=== PATIENT | female | born 1985 | race Caucasian/White ===

== ENCOUNTER → 2019-12-30 | Outpatient (CLI) | payer OTHER ==
--- NOTE | 2019-12-30 08:47 | US ---
EXAMINATION TYPE: US abdomen limited DATE OF EXAM: 12/30/2019 COMPARISON: NONE CLINICAL HISTORY: R10.11 RUQ pain. Pain EXAM MEASUREMENTS: Liver Length: 13.5 cm Gallbladder Wall: .2 cm CBD: .2 cm Right Kidney: 10.3 x 3.6 x 4.0 cm Pancreas: wnl Liver: wnl Gallbladder: Stone seen Evidence for sonographic Erwin's sign: No CBD: wnl Right Kidney: wnl IMPRESSION: Uncomplicated cholelithiasis.
== END | disposition home or self-care (01) ==
LOC: RADUSWWP 08:12
PROVIDERS: ATTEND Family Medicine
DX: K80.20 Calculus of gallbladder without cholecystitis without obstruction (principal)
CPT/HCPCS: 76705

== ENCOUNTER → 2020-10-06 | Outpatient (CLI) | payer OTHER ==
--- NOTE | 2020-10-06 09:24 | US ---
EXAMINATION TYPE: US pelvis complete transvag DATE OF EXAM: 10/06/2020 COMPARISON: NONE CLINICAL HISTORY: N94.6 Dysmenorrhea. TECHNIQUE: Transvaginal (TV) and Transabdominal (TA) . Transabdominal sonographic images of the pel vis were acquired. Transvaginal sonographic images were medically necessary to better assess the fol lowing anatomy: endo and left ovary. Date of LMP: 09/30/2020 EXAM MEASUREMENTS: Uterus: 10.4 x 5.3 x 7.0 cm Endometrial Stripe: 1.2 cm Right Ovary: 2.8 x 2.8 x 2.3 cm Left Ovary: 2.9 x 2.1 x 1.5 cm 1. Uterus: Anteverted There is a vascular 4.3 x 4.4 x 4.2 cm mass that is difficult to tell if it is in myometrium or within endo. 2. Endometrium: measures 1.2 cm 3. Right Ovary: wnl 4. Left Ovary: wnl 5. Bilateral Adnexa: wnl 6. Posterior cul-de-sac: no free fluid IMPRESSION: Heterogeneous mass within the uterus is indeterminant on this examination. It may represent a submuco ravinder leiomyoma, however, other etiologies are also possible. MRI pelvis with and without contrast may be helpful for further evaluation.
== END | disposition home or self-care (01) ==
LOC: RADUSWWP 08:43
PROVIDERS: ATTEND Obstetrics & Gynecology
DX: N85.8 Other specified noninflammatory disorders of uterus (principal)
CPT/HCPCS: 76830; 76856

== ENCOUNTER → 2020-12-27 | Outpatient (CLI) | payer OTHER ==
--- NOTE | 2020-12-27 12:28 | US ---
EXAMINATION TYPE: US pelvic complete DATE OF EXAM: 12/27/2020 COMPARISON: US dated 10/06/2020 CLINICAL HISTORY: D25.9,Leiomyoma of uterus, unspecified N92.0. F/U prior TECHNIQUE: Transabdominal (TA). Transabdominal sonographic images of the pelvis were acquired. Date of LMP: 12/22/2020 EXAM MEASUREMENTS: Uterus: 12.1 x 6.9 x 7.8 cm Endometrial Stripe: 1.0 cm Right Ovary: 2.5 x 1.8 x 1.9 cm Left Ovary: 2.4 x 1.4 x 1.8 cm 1. Uterus: Anteverted Heterogeneous with probable fibroid posterior fundus= 5.6 x 6.1 x 6.6 cm- clifton s increased in size since previous, displacing endometrium anteriorly 2. Endometrium: 1.0 3. Right Ovary: wnl 4. Left Ovary: wnl 5. Bilateral Adnexa: wnl 6. Posterior cul-de-sac: wnl IMPRESSION: Fibroid uterus
== END | disposition home or self-care (01) ==
LOC: RADUSWWP 09:39
PROVIDERS: ATTEND Obstetrics & Gynecology
DX: D25.9 Leiomyoma of uterus, unspecified (principal)
CPT/HCPCS: 76856

== ENCOUNTER → 2021-02-18 | Outpatient (CLI) | payer OTHER ==
[2021-02-18 11:37] LABS: Basophils # (A) 0.1 k/uL (0-0.2); Basophils % (A) 1 %; Eosinophils # (A) 0.2 k/uL (0-0.7); Eosinophils % (A) 5 %; HCT 33.6 % (34.0-46.0); HGB 11.1 gm/dL (11.4-16.0); Hypochromasia Slight; Lymphocytes # (A) 1.3 k/uL (1.0-4.8); Lymphocytes % (A) 25 %; MCH 27.4 pg (25.0-35.0); MCV 83.1 fL (80.0-100.0); Mean Platelet Volume 7.3; Monocytes # (A) 0.3 k/uL (0-1.0); Monocytes % (A) 5 %; Neutrophils # (A) 3.2 k/uL (1.3-7.7); Neutrophils % (A) 62 %; Platelet Count 442 k/uL (150-450); Poikilocytosis Slight; RBC 4.04 m/uL (3.80-5.40); RDW 13.2 % (11.5-15.5); WBC 5.1 k/uL (3.8-10.6)
[2021-02-18 11:54] LABS: African American GFR (CKD) >90 (>60 ml/min/1.73 sqM); Anion Gap 7 mmol/L; Blood Urea Nitrogen 18 mg/dL (7-17); Calcium 9.6 mg/dL (8.4-10.2); Carbon Dioxide 25 mmol/L (22-30); Chloride 106 mmol/L (98-107); Glucose 90 mg/dL (74-99); Non-African American GFR(CKD) >90 (>60 ml/min/1.73 sqM); Potassium 5.1 mmol/L (3.5-5.1); Sodium 138 mmol/L (137-145)
== END | disposition home or self-care (01) ==
LOC: LABPAT 09:47
PROVIDERS: ATTEND Obstetrics & Gynecology
DX: Z01.812 Encounter for preprocedural laboratory examination (principal)
CPT/HCPCS: 36415; 80048; 85025

== ENCOUNTER 2021-02-28 05:54 | Inpatient (IN) | payer OTHER ==
[2021-02-24 09:22] VITALS: BMI 32.1
[2021-02-28] MEDS ORDERED: LACTATED RINGERS 1,000 ML IV ONE ×2 (06:51→09:23)
[2021-02-28] MEDS ORDERED: ONDANSETRON 4 MG/2 ML VIAL ONE (07:03)
[2021-02-28] MEDS ORDERED: MIDAZOLAM 2 MG/2 ML VIAL IVP ONE (07:07)
[2021-02-28] MEDS ORDERED: DEXAMETHASONE SOD PHOSPHATE 4 MG/ML 1 ML VIAL IVP ONE (07:11)
[2021-02-28] MEDS ORDERED: ONDANSETRON 4 MG/2 ML VIAL IVP ONE ×2 (07:11→08:24)
--- NOTE | 2021-02-28 07:43 | P.HPOB ---
History of Present Illness H&P Date: 02/27/21 Chief Complaint: Menorrhagia with regular cycle, enlarging uterine fibroids This is a 35 y.o. female, 2, para 2, who presents for total abdominal hysterectomy with bilateral salpingectomy, possible oophorectomy. Her ultrasound initially showed a 4.4 cm fibroid in September, and in December it was up to 6.6 cm. In addition, she has heavy, painful, irregular menses along with urinary frequency and pelvic pressure. In light of her rapidly enlarging fibroid, there is a concern for leiomyosarcoma and therefore pelvic washings will be performed. Ultrasound showed uterus measuring 12.1 x 6.9 x 7.8 cm with lining thickness of 1 cm and both ovaries appeared normal. There is a probable fibroid in posterior fundus measuring 5.6 x 6.1 x 6.6 cm. She only wants ovaries removed if there is a high suspicion for cancer.] OB Hx: . History of 2 vaginal deliveries. Vehicle Check In Clerk Hx: No history of STDs. Social Hx: . Works at a [employer] Review of Systems Constitutional: Reports fatigue, Denies chills, Denies fever Eyes: denies blurred vision, denies pain Ears, nose, mouth and throat: Denies headache, Denies sore throat Cardiovascular: Denies chest pain, Denies shortness of breath Respiratory: Denies cough Gastrointestinal: Reports abdominal pain (Lower pressure) Genitourinary: Reports dysmenorrhea, Reports menorrhagia, Reports pelvic pain, Reports urinary frequency Musculoskeletal: Reports low back pain, Denies myalgias Integumentary: Denies pruritus, Denies rash Neurological: Reports headaches (on menses) Psychiatric: Reports anxiety Hematologic/Lymphatic: Reports easy bruising Past Medical History Past Medical History: Hyperlipidemia Additional Past Medical History / Comment(s): states low iron, heavy menstrual periods. History of Any Multi-Drug Resistant Organisms: None Reported Past Surgical History: No Surgical Hx Reported Additional Past Anesthesia/Blood Transfusion Reaction / Comment(s): no anesthesia hx Past Psychological History: No Psychological Hx Reported Smoking Status: Former smoker Past Alcohol Use History: None Reported Additional Past Alcohol Use History / Comment(s): quit smoking prior to 19 years old., smoked 3 years Past Drug Use History: None Reported - Past Family History Father Family Medical History: Cancer Additional Family Medical History / Comment(s): thyroid cancer Medications and Allergies Home Medications Medication Instructions Recorded Confirmed Type Iron (Unknown Dose) 1 tab PO DIRECTED 02/24/21 02/28/21 History Niacin 1,000 mg PO DIRECTED 02/24/21 02/28/21 History No Known Home Medications 02/24/21 02/28/21 History [place]-3 Fatty Acids/Fish Oil [Fish 1 each PO DAILY 02/24/21 02/28/21 History Oil 1,000 mg Softgel] Allergies Allergy/AdvReac Type Severity Reaction Status Date / Time No Known Allergies Allergy Verified 02/28/21 06:28 Exam Osteopathic Statement: *. No significant issues noted on an osteopathic structural exam other than those noted in the History and Physical/Consult. HEENT: within normal limits Heart: regular rate and rhythm Lungs: clear to auscultation bilaterally Abdomen: soft, non-tender Pelvic: uterus enlarged to about 12 week size, non-tender, no adnexal masses or tenderness Extremities: neg. Dianna's. Results Result Diagrams: 02/28/21 06:50 Assessment and Plan (1) Fibroid tumor Current Visit: No Status: Acute Code(s): D21.9 - BENIGN NEOPLASM OF CONNECTIVE AND OTHER SOFT TISSUE, UNSP SNOMED Code(s): 098435638633364 (2) Menorrhagia with irregular cycle Current Visit: No Status: Acute Code(s): N92.1 - EXCESSIVE AND FREQUENT MENSTRUATION WITH IRREGULAR CYCLE SNOMED Code(s): 404160777 Plan: Proceed with total abdominal hysterectomy with bilateral salpingectomy, possible oophorectomy. I have discussed the risks, benefits, and alternative therapies for the above- mentioned procedure and for both sedation/anesthesia as well as necessary blood products administration, if indicated, as they pertain to this patient. The pat ient has indicated her understanding and acceptance of the risks and procedures discussed.
[2021-02-28] MEDS ORDERED: SUCCINYLCHOLINE CHLORIDE 100 MG/5 ML SYR IV ONE (08:00)
[2021-02-28] MEDS ORDERED: PROPOFOL 10 MG/ML 20 ML VIAL IV ONE (08:00)
[2021-02-28] MEDS ORDERED: GLYCOPYRROLATE 0.2 MG/ML 2 ML VIAL ONE (08:00)
[2021-02-28] MEDS ORDERED: LIDOCAINE 1% INJ 10MG/ML (20 ML MDV) ONE (08:00)
[2021-02-28] MEDS ORDERED: NEOSTIGMINE 1 MG/ML 10 ML VIAL ONE (08:00)
[2021-02-28] MEDS ORDERED: .fentaNYL (PF) 50 MCG/ML 2 ML AMP ONE (08:00)
[2021-02-28] MEDS ORDERED: diphenhydrAMINE 50 MG/ML 1 ML VIAL ONE (08:00)
[2021-02-28] MEDS ORDERED: ROCURONIUM 10 MG/ML (5 ML VIAL) IV ONE (08:00)
[2021-02-28] MEDS ORDERED: SIMETHICONE 80 MG CHEWABLE PO PRN (08:24)
[2021-02-28] MEDS ORDERED: DEXAMETHASONE SOD PHOSPHATE 4 MG/ML 1 ML VIAL IV ONE (08:24)
[2021-02-28] MEDS ORDERED: KETOROLAC 15 MG/ML 1 ML VIAL IVP PRN (08:24)
[2021-02-28] MEDS ORDERED: ZOLPIDEM 5 MG TAB PO PRN (08:24)
[2021-02-28] MEDS ORDERED: MIDAZOLAM 2 MG/2 ML VIAL IV PRN (08:24)
[2021-02-28] MEDS ORDERED: HYDROmorphone 0.5 MG/0.5 ML SYRINGE IVP PRN (08:24)
[2021-02-28] MEDS ORDERED: ONDANSETRON 4 MG/2 ML VIAL IVP PRN (08:24)
[2021-02-28] MEDS ORDERED: METOCLOPRAMIDE 5 MG/ML 2 ML VIAL IVP PRN (08:24)
[2021-02-28] MEDS ORDERED: LIDOCAINE 1% (10MG/ML) FOR IV START INTRADERMA PRN (08:24)
--- NOTE | 2021-02-28 09:07 | P.OP ---
Date of Procedure: 02/28/21 Preoperative Diagnosis: Menorrhagia with irregular cycle Enlarging uterine fibroids Postoperative Diagnosis: Same Procedure(s) Performed: Total abdominal hysterectomy with bilateral salpingectomy Anesthesia: GETA, spinal (Duramorph) Surgeon: Kya Lagunas Concrete Polisher #1: Jacque Mckinney Estimated Blood Loss (ml): 50 Pathology: other (Uterus with cervix and bilateral fallopian tubes, pelvic washings) Condition: stable Disposition: floor Indications for Procedure: This is a 35 y.o. female, 2, para 2, who presents for total abdominal hysterectomy with bilateral salpingectomy, possible oophorectomy. Her ultrasound initially showed a 4.4 cm fibroid in September, and in December it was up to 6.6 cm. In addition, she has heavy, painful, irregular menses along with urinary frequency and pelvic pressure. In light of her rapidly enlarging fibroid, there is a concern for leiomyosarcoma and therefore pelvic washings will be performed. Ultrasound showed uterus measuring 12.1 x 6.9 x 7.8 cm with lining thickness of 1 cm and both ovaries appeared normal. There is a probable fibroid in posterior fundus measuring 5.6 x 6.1 x 6.6 cm. She only wants ovaries removed if there is a high suspicion for cancer.] Operative Findings: Uterus is enlarged with fibroid change. Both ovaries and tubes appeared normal. Description of Procedure: The patient is taken to the operating room where she is placed in the dorsal supine position. She is prepped and draped in the normal sterile fashion including Carmichael catheter insertion and vaginal prep. A Pfannenstiel skin incision is made with a scalpel. A second knife was used to carry the incision down to the underlying layer of fascia. The fascia was nicked in the midline with a scalpel and then extended laterally bilaterally with Jin scissors. The superior aspect of the fascial incision was grasped with Rita clamps, elevated off the underlying rectus muscle in the midline and then cut with Jin scissors. The inferior aspect of the fascial incision was grasped with Rita clamps, elevated off the underlying rectus muscle in the midline and then cut with Jin scissors. Next the peritoneum was identified and entered sharply with Jin scis sors. It is extended superiorly and in fairly with Metzenbaum scissors with good visualization of underlying structures. Next the [place] retractor is placed in the bladder blade was inserted. A small amount of saline is placed in the pelvis and a Lukey tube is used to perform pelvic washings. The bowels were packed with a 3 yard laparotomy sponge. Next the uterus is brought up incision and the corneal regions are grasped with Olimpia clamps on both sides. Next the fallopian tube on the left side is brought up to the incision and the mesosalpinx is clamped with a Villa clamp. This is cut with Jin scissors and then sutured with 0 Vicryl suture in Villa transfixion stitch. The remaining mesosalpinx is also clamped with a Villa clamp, cut with Jin scissors, and sutured with 0 Vicryl suture in Villa transfixion stitches. Next the uterine ovarian ligament is clamped with a Villa clamp, cut with Jin scissors, and then sutured with 0 Vicryl suture in Villa transfixion stitch. The same procedure is carried out on the right side. The uterine arteries are then clamped with Villa clamp on either side. The vesicouterine peritoneum was sharply dissected away from the bladder with Metzenbaum scissors and pushed inferiorly. The uterine arteries are then cut with Jin scissors, and sutured with 0 Vicryl suture in Villa transfixion stitches. Next the cardinal ligaments were clamped on either side with Villa clamp, cut with Jin scissors, and sutured with 0 Vicryl suture in Villa transfixion stitches. The uterosacral ligaments are clamped on either side with Villa clamps, cut with Jin scissors, and sutured with 0 Vicryl suture in Villa transfixion stitches on either side. The edges of the vaginal cuff were clamped on either side with a Villa clamp, cut with Jin scissors, and sutured with 0 Vicryl suture in Villa transfixion stitches and held on either side. The vaginal mucosa was then cut just below the level of the cervix and the specimen is removed from the field. The edges of the vaginal cuff were held with Rita clamps. Next the previously held corners of each side of the vaginal cuff were then whipstitched along the connective tissue on either side and brought through the corner of the cuff and tied. Next the vaginal cuff was sutured with 0 Vicryl suture in a running locked fashion. Hemostasis was noted. Copious irrigation is carried out with warm saline. Excellent hemostasis is noted. All sponges are removed from the abdomen. The peritoneum is then closed with 0 Vicryl suture in a running fashion. The muscle was then reapproximated with 0 Vicryl suture in interrupted fashion. The fascia layer is then closed with 0 PDS suture in a running fashion with the knots buried on either side and in the midline. Next the subcutaneous tissues closed with 2-0 Vicryl suture in a running fashion. The skin is closed with devyn. All sponge and needle counts are correct and the patient is taken to recovery room in stable condition.
[2021-02-28] MEDS: diphenhydrAMINE 50 MG/ML 1 ML VIAL IVP PRN ×3 (09:41→22:13)
[2021-02-28] MEDS: KETOROLAC 30 MG/ML 1 ML VIAL IVP PRN ×2 (11:34→18:08)
--- NOTE | 2021-02-28 15:04 | P.ANPRN ---
Procedure Note - Anesthesia - Epidural/Spinal Spinal Time Out Performed: Yes Date of Procedure: 02/28/21 Procedure Start Time: 07:06 Procedure Stop Time: 07:11 Location of Patient: PreOp Indication: Acute Post-Operative Pain, Requested by Surgeon Sedation Type: Sedate with meaningful contact maintained Preparation: Sterile Prep Position: Sitting Needle Guage: 25 Blood Aspirated: No Pain Paresthesia on Injection Noted: No Events: Uneventful and Well Tolerated (Duramorph 300 mics plus fentanyl 25 mics)
[2021-02-28] MEDS: LACTATED RINGERS 1,000 ML IV SCH (18:09)
[2021-02-28] MEDS: SENNOSIDES-DOCUSATE SODIUM 1 EACH TAB PO SCH (20:11)
[2021-03-01] MEDS: KETOROLAC 30 MG/ML 1 ML VIAL IVP PRN ×2 (02:39→08:43)
[2021-03-01 04:40] LABS: Basophils % (A) 0 %; Eosinophils % (A) 0 %; HCT 28.9 % (34.0-46.0); Hypochromasia Marked; Lymphocytes # (A) 1.2 k/uL (1.0-4.8); Lymphocytes % (A) 15 %; MCH 26.6 pg (25.0-35.0); MCHC 31.6 g/dL (31.0-37.0); MCV 84.1 fL (80.0-100.0); Mean Platelet Volume 8.5; Monocytes # (A) 0.5 k/uL (0-1.0); Monocytes % (A) 7 %; Neutrophils # (A) 6.1 k/uL (1.3-7.7); Neutrophils % (A) 77 %; Platelet Count 325 k/uL (150-450); Poikilocytosis Slight; RBC 3.44 m/uL (3.80-5.40); WBC 7.9 k/uL (3.8-10.6)
[2021-03-01 04:50] LABS: HGB 9.1 gm/dL (11.4-16.0)
--- NOTE | 2021-03-01 06:44 | P.PN ---
Progress Note - Text Progress Note Date: 03/01/21 Patient seen and examined at bedside POD 1 s/p hysterectomy with spinal duramorph. Patients pain is well controlled as duramorph is starting to wean. Patient reports decreased itching. Patient is able to ambulate without difficulty and has used the restroom several times. Patient denies SALCEDO, F/C, parathesias, weakness. Site is clean and without erythema. Will continue to follow until discharge home.
[2021-03-01] MEDS ORDERED: ACETAMINOPHEN TAB 325 MG TAB PO PRN (07:45)
[2021-03-01] MEDS ORDERED: HYDROcodone/APAP 5-325MG 1 EACH TAB PO PRN (08:07)
--- NOTE | 2021-03-01 08:11 | P.PN ---
Subjective Progress Note Date: 03/01/21 Principal diagnosis: Status post KELLIE with bilateral salpingectomy postoperative day #1 Patient is doing okay. She has been ambulating. She is urinating without difficulty. She has minimal vaginal bleeding. She has not passed flatus or bowel movement yet. Her pain is fairly well controlled at this time. Objective - Vital Signs Vital signs: Vital Signs Temp 98.4 F 03/01/21 01:06 Pulse 89 03/01/21 01:06 Resp 16 03/01/21 07:49 BP 133/82 03/01/21 01:06 Pulse Ox 98 03/01/21 01:06 Intake & Output 02/28/21 03/01/21 03/01/21 18:59 06:59 18:59 Intake Total 350 240 Output Total 1050 1650 300 Balance -700 -1410 -300 Weight 69.4 kg Intake: IV 350 Intake, IV Titration 240 Amount Lactated Ringers 1,000 ml 240 @ 20 mls/hr IV .Q24H [facility] Rx#:[id number] Output: Urine 1000 1650 300 Uretheral (Carmichael) 1650 Estimated Blood Loss 50 Other: Voiding Method Indwelling Catheter Toilet - Constitutional General appearance: Present: no acute distress - Gastrointestinal Gastrointestinal Comment(s): Incision is clean dry and intact with devyn in place General gastrointestinal: Present: decreased bowel sounds - Musculoskeletal Musculoskeletal Comment(s): Negative Homans bilaterally - Labs CBC & Chem 7: 03/01/21 04:19 02/28/21 06:50 Labs: Abnormal Lab Results - Last 24 Hours (Table) 03/01/21 Range/Units 04:19 RBC 3.44 L (3.80-5.40) m/uL Hgb 9.1 L D (11.4-16.0) gm/dL Hct 28.9 L (34.0-46.0) % Assessment and Plan Assessment: Status post total abdominal hysterectomy with bilateral salpingectomy postoperative day #1 (1) Fibroid tumor Current Visit: No Status: Acute Code(s): D21.9 - BENIGN NEOPLASM OF CONNECTIVE AND OTHER SOFT TISSUE, UNSP SNOMED Code(s): 451616820099577 (2) Menorrhagia with irregular cycle Current Visit: No Status: Acute Code(s): N92.1 - EXCESSIVE AND FREQUENT MENSTRUATION WITH IRREGULAR CYCLE SNOMED Code(s): 278449030 Plan: Continue with postoperative care. Will advance diet after flatus. Patient is encouraged to ambulate and may shower. Will switch to oral pain medications today.
[2021-03-01] MEDS: SENNOSIDES-DOCUSATE SODIUM 1 EACH TAB PO SCH ×2 (08:42→20:09)
[2021-03-01] MEDS: HYDROcodone/APAP 5-325MG 1 EACH TAB PO PRN ×3 (12:18→23:50)
[2021-03-01] MEDS: IBUPROFEN 600 MG TAB PO PRN ×2 (14:26→21:23)
[2021-03-01] MEDS: LACTATED RINGERS 1,000 ML IV SCH (17:11)
[2021-03-02] MEDS: IBUPROFEN 600 MG TAB PO PRN ×2 (04:00→12:24)
[2021-03-02] MEDS ORDERED: ONDANSETRON 4 MG TAB PO ONE (06:42)
[2021-03-02 08:21] VITALS: BP 129/79; PULSE 88; RESP 13; TEMP 98.1
[2021-03-02] MEDS: SENNOSIDES-DOCUSATE SODIUM 1 EACH TAB PO SCH (08:33)
[2021-03-02] MEDS: HYDROcodone/APAP 5-325MG 1 EACH TAB PO PRN (08:33)
--- NOTE | 2021-03-02 09:00 | P.DS ---
Providers Date of admission: 02/28/21 05:54 Expected date of discharge: 03/02/21 Attending physician: Kya Lagunas Primary care physician: Emmanuel Mcfarland - Discharge Diagnosis(es) (1) Fibroid tumor Current Visit: No Status: Acute (2) Menorrhagia with irregular cycle Current Visit: No Status: Acute Hospital Course: This is a 35-year-old female who underwent a total abdominal hysterectomy with bilateral salpingectomy on 02/28/2021. Her postoperative course has been uncomplicated. She is passing flatus but no bowel movement yet. She did have 1 episode of emesis this morning but overall feels much better than she did yesterday. Her pain is been fairly well controlled with ibuprofen and [place]. Bleeding has stopped. Vital signs are stable. Abdomen is soft with positive bowel sounds 4. Incision is clean dry and intact with devyn in place. Extremities show negative Homans. Impression is status post total abdominal hysterectomy with bilateral salpingectomy postoperative day #2. Plan is to discharge home later today. Routine postoperative instructions are given. St aples will be removed before discharge. She is advised no heavy lifting, no tub baths, no driving until off of narcotic pain medication. She may shower. She is instructed to follow-up in the office in 1 week for a postoperative check and is advised to call the office if she has any further questions or concerns prior to her appointment time. She denies the use of any narcotic for scheduled drug at home. She will be given a perception for ibuprofen and [place] and has signed a consent form. Procedures: Total abdominal hysterectomy with bilateral salpingectomy on 02/28/2021 Patient Condition at Discharge: Stable Plan - Discharge Summary Discharge Rx Participant: Yes New Discharge Prescriptions: New Ibuprofen [Motrin] 600 mg PO Q6HR PRN #60 tab PRN Reason: Mild Discomfort HYDROcodone/APAP 5-325MG [[place] 5-325] 1 each PO Q6HR PRN #30 tab PRN Reason: Moderate Pain Continue Iron (Unknown Dose) 1 tab PO DIRECTED No Action Niacin 1,000 mg PO DIRECTED [place]-3 Fatty Acids/Fish Oil [Fish Oil 1,000 mg Softgel] 1 each PO DAILY Discharge Medication List Iron (Unknown Dose) 1 tab PO DIRECTED 02/24/21 [History] Niacin 1,000 mg PO DIRECTED 02/24/21 [History] [place]-3 Fatty Acids/Fish Oil [Fish Oil 1,000 mg Softgel] 1 each PO DAILY 02/24/21 [History] HYDROcodone/APAP 5-325MG [[place] 5-325] 1 each PO Q6HR PRN #30 tab 03/02/21 [Rx] Ibuprofen [Motrin] 600 mg PO Q6HR PRN #60 tab 03/02/21 [Rx] Follow up Appointment(s)/Referral(s): Kya Lagunas DO [Doctor of Osteopathic Medicine] - 1 Week Activity/Diet/Wound Care/Special Instructions: Activity as tolerated. No heavy lifting. May shower, but no tub baths for at least 1 week. No intercourse. Diet as tolerated. Discharge Disposition: HOME SELF-CARE
== END 2021-03-02 12:55 | disposition home or self-care (01) | DRG 743 ==
LOC: 2ORMAIN 05:54 → EDSTATUS 07:30 → 4FBP 09:29
PROVIDERS: ADMIT Obstetrics & Gynecology; ATTEND Obstetrics & Gynecology
PROC: 0UT70ZZ Resection of Bilateral Fallopian Tubes, Open Approach (ICD-10-PCS; 2021-02-28)
PROC: 0UTC0ZZ Resection of Cervix, Open Approach (ICD-10-PCS; 2021-02-28)
PROC: 3E1P38X Irrigation of Female Reproductive using Irrigating Substance, Percutaneous Approach, Diagnostic (ICD-10-PCS; 2021-02-28)
PROC: 0UT90ZZ Resection of Uterus, Open Approach (ICD-10-PCS; principal; 2021-02-28 07:30)
DX: D25.1 Intramural leiomyoma of uterus (principal); E61.1 Iron deficiency; N83.8 Other noninflammatory disorders of ovary, fallopian tube and broad ligament; E78.5 Hyperlipidemia, unspecified; M54.50 Low back pain, unspecified; R11.10 Vomiting, unspecified; L29.9 Pruritus, unspecified; R30.0 Dysuria; Z87.891 Personal history of nicotine dependence; Z20.822 Contact with and (suspected) exposure to COVID-19
CPT/HCPCS: 81025; 84132; 85025; 86850; 86900; 86901; 87635; 88108; 88305; 88307

== ENCOUNTER → 2023-10-27 | Outpatient (CLI) | payer OTHER | END | disposition home or self-care (01) | LOC: LABPRL 10:40 | PROVIDERS: ATTEND Physician Assistant | DX: E78.2 Mixed hyperlipidemia (principal) | CPT/HCPCS: 80061 ==